=== PATIENT | male | born 1980 | race American Indian/Alaskan Native ===

== ENCOUNTER 2017-08-03 04:04 | Emergency (ER) | payer OTHER ==
[2017-08-03] MEDS ORDERED: TORADOL IV ONE (04:34)
[2017-08-03 05:03] LABS: Basophils # (Auto) 0.1 K/mm3 (0.0-0.1); Basophils % (Auto) 0.5 % (0.0-1.8); Eosinophils # (Auto) 0.1 K/mm3 (0.0-0.4); Eosinophils % (Auto) 0.6 % (0.0-4.3); Hematocrit 43.9 % (35.5-45.6); Hemoglobin 14.9 gm/dl (11.8-15.2); Lymphocytes # (Auto) 1.3 K/mm3 (1.2-5.4); Lymphocytes % (Auto) 14.1 % (13.4-35.0); Mean Corpuscular HGB Conc 34 % (32-34); Mean Corpuscular Hemoglobin 33 pg (28-32); Mean Corpuscular Volume 98 fl (84-94); Monocytes # (Auto) 0.7 K/mm3 (0.0-0.8); Monocytes % (Auto) 7.4 % (0.0-7.3); Platelet Count 244 K/mm3 (140-440); Red Blood Count 4.48 M/mm3 (3.65-5.03); Red Cell Distribution Width 12.5 % (13.2-15.2)
[2017-08-03 05:03] LABS: Bilirubin,Urine NEG (Negative); Blood,Urine NEG (Negative); Color,Urine Straw (Yellow); Mucus,Urine FEW /HPF; Nitrite,Urine NEG (Negative); Protein,Urine <15 mg/dL mg/dL (Negative); Urobilinogen,Urine < 2.0 mg/dL (<2.0); WBC,Urine < 1.0 /HPF (0.0-6.0)
[2017-08-03 05:21] LABS: Alanine Aminotransferase 35 units/L (7-56); Albumin 4.5 g/dL (3.9-5); BUN/Creatinine Ratio 16; Blood Urea Nitrogen 18 mg/dL (9-20); Calcium 8.9 mg/dL (8.4-10.2); Hemolysis Index 7; Lipase 29 units/L (13-60)
--- NOTE | 2017-08-03 12:24 | Emergency Department Report ---
ED Abdominal Pain HPI - General Chief Complaint: Abdominal Pain Stated Complaint: ABDOMINAL PAIN Time Seen by Provider: 08/03/17 12:23 Source: patient, family ( is bedside) Mode of arrival: Ambulatory Limitations: No Limitations - History of Present Illness Initial Comments: Mr. Skinner is a healthy 36-year-old male with right lower quadrant and left lower quadrant pain. 10/10 pain. He ate [employer]cia goat a local restaurant prior to the episode. Pain began 1 AM in the middle of sleep. No vomiting, no diarrhea, no fever. +urinary urgency MD Complaint: abdominal pain -: Sudden Location: LLQ, RLQ Radiation: none Migration to: no migration Severity: severe Severity scale (0 -10): 10 Quality: cramping, sharp Consistency: now resolved Improves With: nothing Worsens With: nothing Context: possible food poisoning - Related Data Home Medications Medication Instructions Recorded Confirmed Last Taken No Known Home Medications [No 08/03/17 08/03/17 Unknown Reported Home Medications] Allergies Allergy/AdvReac Type Severity Reaction Status Date / Time No Known Allergies Allergy Unverified 08/03/17 04:33 ED Review of Systems ROS: Stated complaint: ABDOMINAL PAIN Other details as noted in HPI Comment: All other systems reviewed and negative Constitutional: denies: chills, fever Cardiovascular: denies: chest pain ED Past Medical Hx - Past Medical History Previous Medical History?: No - Surgical History Past Surgical History?: No - Social History Smoking Status: Current Some Day Smoker Substance Use Type: None - Medications Home Medications: Home Medications Medication Instructions Recorded Confirmed Last Taken Type No Known Home Medications [No 08/03/17 08/03/17 Unknown History Reported Home Medications] ED Physical Exam - General Limitations: No Limitations General appearance: alert, in no apparent distress - Head Head exam: Present: atraumatic, normocephalic - Eye Eye exam: Present: normal appearance - ENT ENT exam: Present: mucous membranes moist - Neck Neck exam: Present: normal inspection - Respiratory Respiratory exam: Present: normal lung sounds bilaterally. Absent: respiratory distress - Cardiovascular Cardiovascular Exam: Present: regular rate, normal rhythm. Absent: systolic murmur, diastolic murmur, rubs, gallop - GI/Abdominal GI/Abdominal exam: Present: soft, tenderness (rlq tenderness), normal bowel sounds. Absent: distended, guarding, rebound - Rectal Rectal exam: Present: deferred - Extremities Exam Extremities exam: Present: normal inspection - Back Exam Back exam: Present: normal inspection - Neurological Exam Neurological exam: Present: alert, oriented X3 - Psychiatric Psychiatric exam: Present: normal affect, normal mood - Skin Skin exam: Present: warm, dry, intact, normal color. Absent: rash ED Course Vital Signs 08/03/17 04:24 Temperature 98.3 F Pulse Rate 88 Respiratory 16 Rate Blood Pressure 141/61 O2 Sat by Pulse 99 Oximetry ED Medical Decision Making - Lab Data Result diagrams: 08/03/17 04:48 08/03/17 04:48 - Radiology Data Radiology results: report reviewed No acute process on CT abdomen and pelvis - Medical Decision Making Ms. Skinner presents with lower abdominal pain. No acute inflammatory process. When speaking with the , patient has had frequent nocturnal crampy abdominal pain. When he eats certain types of meat, he immediately must defecate. Strongly suspect IBS. I gave him IBS education instructions. Critical care attestation.: If time is entered above; I have spent that time in minutes in the direct care of this critically ill patient, excluding procedure time. ED Disposition Clinical Impression: Abdominal pain Disposition: DC-01 TO HOME OR SELFCARE Is pt being admited?: No Does the pt Need Aspirin: No Condition: Stable Instructions: Abdominal Pain (ED), Irritable Bowel Syndrome (ED) Referrals: JUSTYN THOMAS MD [Primary Care Provider] - 3-5 Days Time of Disposition: 14:41
--- NOTE | 2017-08-03 13:28 | Cat Scan Report ---
CT ABDOMEN AND PELVIS WITH CONTRAST: 08/03/17 04:04:00 CLINICAL: Right lower quadrant abdominal pain. COMPARISON: None. TECHNIQUE: Volumetric acquisition and 1.25 millimeter scan reconstructions after the uneventful intravenous injection of 100 cc Omnipaque 300. Consent was obtained prior to the administration of contrast. Oral contrast was not given. FINDINGS: Abdomen: Clear lung bases.Normal liver, bile ducts and gallbladder. Normal stomach, duodenum, pancreas and spleen. Normal aorta and inferior vena cava. Normal adrenal glands and kidneys. The renal collecting systems and ureters are nondilated.The small bowel is normal. However, a couple of right-sided bowel loops contained dense barium which would be related to a recent barium study unrelated to this exam. The colon is normal with a moderate amount of residual dense barium in the cecum and proximal ascending colon. The appendix is normal. No mass, lymphadenopathy or ascites.No pneumoperitoneum. Pelvis: Normal urinary bladder.Normal prostate and seminal vesicles. Normal rectum and sigmoid colon. Bone windows demonstrate no bone lesion. IMPRESSION: Negative study except for retained dense barium in a few loops of small bowel and colon which may explain symptoms.
[2017-08-03 15:39] VITALS: BP 129/81
== END 2017-08-03 15:38 | disposition home or self-care (01) ==
LOC: ED 04:04
DX: R10.31 Right lower quadrant pain (principal); R39.15 Urgency of urination
CPT/HCPCS: 36415; 74177; 80053; 81001; 83690; 85025; 96374; 99283; J1885; Q9967